=== PATIENT | female | born 1950 | race Caucasian/White ===

== ENCOUNTER 2018-05-23 10:15 | Observation (INO) ==
[2018-05-23] MEDS ORDERED: MORPHINE 4 MG/1 ML VIAL IV STA (11:26)
[2018-05-23] MEDS ORDERED: NITROGLYCERIN 2% OINT 1 INCH/GM PACK TOP STA (11:26)
[2018-05-23] MEDS ORDERED: ASPIRIN 325 MG TABLET PO STA (11:26)
[2018-05-23] MEDS ORDERED: ALUM/MAG/SIMETH/LIDO VISC 1:1 30 ML BOTTLE PO STA (11:26)
[2018-05-23] MEDS ORDERED: ONDANSETRON 4 MG/2 ML VIAL IV STA (11:26)
[2018-05-23 11:36] LABS: Basophils % 0.2 % (0.0-0.8); Eosinophils # 0.2 10*3/uL (0.0-0.87); Eosinophils % 3.9 % (0.00-10.9); Hematocrit 42.7 VOL% (35.7-47.0); Hemoglobin 14.2 GM/DL (12.0-16.0); Immature Granulocytes % 0.2 %; Immature Granulocytes Absolute 0.01 #; Lymphocytes # 1.2 10*3/uL (1.4-4.0); Lymphocytes % 21.9 % (21.3-54.2); Mean Corpuscular HGB Conc 33.3 GM/DL (32-36); Mean Corpuscular Hemoglobin 28 PG (27-34); Mean Corpuscular Volume 85.2 FL (87-102); Mean Platelet Volume 10.7 FL (9.6-12.0); Monocytes # 0.5 10*3/uL (0.11-0.8); Monocytes % 8.2 % (1.7-12.7); Neutrophils # 3.7 10*3/uL (1.4-7.4); Neutrophils % 65.6 % (38.7-73.9); Platelet Count 200 T/CUMM (130-400); Red Blood Count 5.01 MC/CUMM (3.8-5.5); Red Cell Distribution Width 14.4 % (9.3-17.3); White Blood Count 5.6 T/CUMM (4-12)
[2018-05-23 11:43] LABS: INR 0.9; PT Patient Result 9.9 SECS
[2018-05-23 11:49] LABS: Alanine Aminotransferase 12 U/L (13-56); Albumin 3.5 G/DL (3.4-5.0); Alkaline Phosphatase 94 U/L (45-117); Aspartate Amino Transferase 20 U/L (0-37); Bilirubin,Total < 0.39 MG/DL (0.2-1.0); Blood Urea Nitrogen 23 MG/DL (7-18); Calcium 9.1 MG/DL (8.5-10.1); Glucose 118 MG/DL (74-106); Osmolality,Calculated 281.5 MOS/KG (273-304); Potassium 4.2 MMOL/L (3.5-5.1); Sodium 139 MMOL/L (136-145); Total Protein 7.5 G/DL (6.4-8.3)
[2018-05-23] MEDS ORDERED: ENOXAPARIN 100 MG/ML SYRINGE SUBCUT STA (11:55)
[2018-05-23 12:01] LABS: Platelet Estimate Normal
[2018-05-23] MEDS ORDERED: ALUM/MAG/SIMETH/LIDO VISC 1:1 30 ML BOTTLE PO PRN (13:31)
[2018-05-23] MEDS ORDERED: MAGNESIUM SULF RIDER 4 GM in PREMIX 1 EACH IV PRN (13:31)
[2018-05-23] MEDS ORDERED: POTASSIUM CHLORIDE 20 MEQ TABLET PO PRN (13:31)
[2018-05-23] MEDS ORDERED: MAGNESIUM SULF RIDER 2 GM in PREMIX 1 EACH IV PRN (13:31)
[2018-05-23] MEDS ORDERED: ACETAMINOPHEN 325 MG TABLET PO PRN (13:31)
[2018-05-23 13:53] LABS: Risk Ratio 5.37; VLDL CHOLESTEROL 62.8 MG/DL
[2018-05-23] MEDS: NICOTINE 21 MG/24 HR PATCH TRANSDERM SCH (17:41)
[2018-05-23] MEDS ORDERED: KETOROLAC 30 MG/1 ML VIAL IV ONE (20:46)
[2018-05-23] MEDS ORDERED: VALSARTAN 80 MG TABLET PO SCH (21:00)
[2018-05-23] MEDS: CARVEDILOL 3.125 MG TABLET PO SCH (21:26)
[2018-05-23 22:26] LABS: Apearance,Urine Slightly Hazy (Clear); Bilirubin,Urine Negative (Negative); Blood, Urine Negative (Negative); Glucose,Urine (UA) Negative (Negative); Hyaline Casts,Urine 3 /LPF (0-3); Ketones,Urine 5 mg/dL (Negative); Mucus,Urine Occasional /LPF (Occasional); Nitrite,Urine Negative (Negative); Protein,Urine Negative; RBC,Urine <1 /HPF (0-4); Squamous Epithelial Cell,Urine Occasional /HPF (0-10); Urine Color Yellow (Yellow); Urine Specific Gravity 1.027 (1.001-1.035); Urine Urobilinogen < 2.0 EU/DL (0.2-1.0); WBC,Urine 2 /HPF (0-6)
[2018-05-23] MEDS: MORPHINE 4 MG/1 ML VIAL IV PRN (22:34)
[2018-05-23] MEDS: ENOXAPARIN 80 MG/0.8 ML SYRINGE SUBCUT SCH (22:48)
[2018-05-24] MEDS: NITROGLYCERIN 2% OINT 1 INCH/GM PACK TOP SCH ×4 (00:30→18:18)
[2018-05-24] MEDS ORDERED: cloNIDine 0.1 MG TABLET PO PRN (02:43)
[2018-05-24 03:12] LABS: Barbiturates Screen,Urine Negative (Negative); Benzodiazepines Screen,Urine Negative (Negative); Cannabinoid Screen,Urine Positive (Negative); Opiate Screen,Urine Positive (Negative); Phencyclidine Screen,Urine Negative (Negative)
[2018-05-24 03:42] LABS: Basophils % 0.2 % (0.0-0.8); Eosinophils # 0.4 10*3/uL (0.0-0.87); Eosinophils % 6.4 % (0.00-10.9); Hematocrit 38.9 VOL% (35.7-47.0); Hemoglobin 12.6 GM/DL (12.0-16.0); Immature Granulocytes % 0.2 %; Immature Granulocytes Absolute 0.01 #; Lymphocytes # 2.6 10*3/uL (1.4-4.0); Lymphocytes % 41.6 % (21.3-54.2); Mean Corpuscular HGB Conc 32.4 GM/DL (32-36); Mean Corpuscular Hemoglobin 28 PG (27-34); Mean Corpuscular Volume 86.6 FL (87-102); Mean Platelet Volume 9.9 FL (9.6-12.0); Monocytes # 0.7 10*3/uL (0.11-0.8); Monocytes % 10.5 % (1.7-12.7); Neutrophils # 2.6 10*3/uL (1.4-7.4); Neutrophils % 41.1 % (38.7-73.9); Platelet Count 227 T/CUMM (130-400); Red Blood Count 4.49 MC/CUMM (3.8-5.5); Red Cell Distribution Width 14.2 % (9.3-17.3); White Blood Count 6.3 T/CUMM (4-12)
[2018-05-24] MEDS: MORPHINE 4 MG/1 ML VIAL IV PRN ×3 (03:43→18:17)
[2018-05-24] MEDS: ONDANSETRON 4 MG/2 ML VIAL IV PRN ×2 (03:52→19:09)
[2018-05-24 04:04] LABS: Bilirubin,Total 0.4 MG/DL (0.2-1.0); Calcium 8.3 MG/DL (8.5-10.1); Osmolality,Calculated 287.4 MOS/KG (273-304); Potassium 4.3 MMOL/L (3.5-5.1); Total Protein 6.8 G/DL (6.4-8.3)
[2018-05-24 04:07] LABS: Troponin I 0.113 NG/ML (0.00-0.045)
[2018-05-24] MEDS: LISINOPRIL 2.5 MG TABLET PO SCH (10:52)
[2018-05-24] MEDS: ASPIRIN EC 81 MG TABLET PO SCH (10:53)
[2018-05-24] MEDS: CARVEDILOL 3.125 MG TABLET PO SCH ×3 (10:53→21:25)
[2018-05-24] MEDS: PANTOPRAZOLE 40 MG TABLET PO SCH (10:53)
[2018-05-24] MEDS: NICOTINE 21 MG/24 HR PATCH TRANSDERM SCH (10:53)
[2018-05-24] MEDS ORDERED: REGADENOSON 0.4 MG/5 ML SYRINGE IV ONE (10:54)
[2018-05-24] MEDS: ENOXAPARIN 80 MG/0.8 ML SYRINGE SUBCUT SCH ×2 (10:54→21:22)
[2018-05-24] MEDS: ATORVASTATIN 40 MG TABLET PO SCH (12:58)
[2018-05-24] MEDS: OMEGA 3 ACID ETHYL ESTERS 1 GM CAPSULE PO SCH ×2 (12:58→21:22)
[2018-05-24] MEDS: SERTRALINE 50 MG TABLET PO SCH (12:58)
[2018-05-24] MEDS ORDERED: POTASSIUM CHLORIDE RIDER 10 MEQ in PREMIX 1 EACH IV PRN (15:54)
[2018-05-25] MEDS: NITROGLYCERIN 2% OINT 1 INCH/GM PACK TOP SCH ×4 (00:37→18:09)
[2018-05-25] MEDS: CARVEDILOL 3.125 MG TABLET PO SCH ×4 (00:38→20:53)
[2018-05-25 05:33] LABS: Basophils % 0.4 % (0.0-0.8); Eosinophils # 0.4 10*3/uL (0.0-0.87); Eosinophils % 8.3 % (0.00-10.9); Hematocrit 40.6 VOL% (35.7-47.0); Hemoglobin 12.9 GM/DL (12.0-16.0); Immature Granulocytes % 0.2 %; Immature Granulocytes Absolute 0.01 #; Lymphocytes # 1.9 10*3/uL (1.4-4.0); Lymphocytes % 40.6 % (21.3-54.2); Mean Corpuscular HGB Conc 31.8 GM/DL (32-36); Mean Corpuscular Hemoglobin 28 PG (27-34); Mean Corpuscular Volume 86.8 FL (87-102); Mean Platelet Volume 10.9 FL (9.6-12.0); Monocytes # 0.5 10*3/uL (0.11-0.8); Neutrophils # 1.9 10*3/uL (1.4-7.4); Neutrophils % 40.5 % (38.7-73.9); Platelet Count 220 T/CUMM (130-400); Red Blood Count 4.68 MC/CUMM (3.8-5.5); Red Cell Distribution Width 14.4 % (9.3-17.3); White Blood Count 4.7 T/CUMM (4-12)
[2018-05-25 05:59] LABS: Calcium 8.1 MG/DL (8.5-10.1); Osmolality,Calculated 278.7 MOS/KG (273-304); Potassium 4.2 MMOL/L (3.5-5.1)
[2018-05-25 06:18] LABS: Alanine Aminotransferase 12 U/L (13-56); Albumin 3.1 G/DL (3.4-5.0); Alkaline Phosphatase 89 U/L (45-117); Aspartate Amino Transferase 26 U/L (0-37); Bilirubin,Total < 0.39 MG/DL (0.2-1.0); Blood Urea Nitrogen 26 MG/DL (7-18); Calcium 8.1 MG/DL (8.5-10.1); Glucose 86 MG/DL (74-106); Osmolality,Calculated 278.7 MOS/KG (273-304); Potassium 4.3 MMOL/L (3.5-5.1); Sodium 138 MMOL/L (136-145); Total Protein 6.7 G/DL (6.4-8.3)
[2018-05-25] MEDS: SODIUM CHLORIDE 0.9% 1,000 ML IV SCH ×3 (06:50→20:56)
[2018-05-25] MEDS ORDERED: DIAZEPAM 5 MG TABLET PO ONE (07:00)
[2018-05-25] MEDS ORDERED: diphenhydrAMINE CAP 25 MG CAPSULE PO ONE (07:00)
[2018-05-25] MEDS: ASPIRIN EC 81 MG TABLET PO SCH ×2 (07:15→11:03)
[2018-05-25] MEDS: SERTRALINE 50 MG TABLET PO SCH (07:35)
[2018-05-25] MEDS: OMEGA 3 ACID ETHYL ESTERS 1 GM CAPSULE PO SCH ×2 (07:35→20:53)
[2018-05-25] MEDS: ATORVASTATIN 40 MG TABLET PO SCH (07:35)
[2018-05-25] MEDS: LISINOPRIL 2.5 MG TABLET PO SCH (07:35)
[2018-05-25] MEDS: PANTOPRAZOLE 40 MG TABLET PO SCH (07:35)
[2018-05-25] MEDS ORDERED: MIDAZOLAM 2 MG/2 ML VIAL ONE ×2 (07:55→08:45)
[2018-05-25] MEDS ORDERED: fentaNYL 100 MCG/2 ML VIAL ONE (07:55)
[2018-05-25] MEDS ORDERED: LIDOCAINE 1% 20 ML VIAL ONE (07:55)
[2018-05-25] MEDS ORDERED: NITROGLYCERIN DRIP 50 MG/250 ML BOTTLE IV ONE (08:05)
[2018-05-25] MEDS ORDERED: VERAPAMIL 5 MG/2 ML VIAL ONE (08:05)
[2018-05-25] MEDS ORDERED: ENOXAPARIN 30 MG/0.3 ML SYRINGE ONE (08:11)
[2018-05-25] MEDS ORDERED: HYDROmorphone 2 MG/1 ML VIAL ONE (08:31)
[2018-05-25] MEDS ORDERED: TIROFIBAN 5,000 MCG/100 ML PREMIX IV ONE (08:38)
[2018-05-25] MEDS ORDERED: SERTRALINE 50 MG TABLET PO SCH (09:00)
[2018-05-25] MEDS ORDERED: hydrALAZINE 20 MG/1 ML VIAL ONE ×2 (09:00→09:20)
[2018-05-25] MEDS ORDERED: PROMETHAZINE 25 MG/1 ML VIAL ONE ×2 (09:06→11:54)
[2018-05-25] MEDS ORDERED: ONDANSETRON 4 MG/2 ML VIAL ONE (09:47)
[2018-05-25] MEDS ORDERED: ZALEPLON 5 MG CAPSULE PO PRN (09:48)
[2018-05-25] MEDS ORDERED: HYDROmorphone 2 MG/1 ML VIAL IV PRN (09:48)
[2018-05-25] MEDS ORDERED: TICAGRELOR 90 MG TABLET ONE (09:51)
[2018-05-25] MEDS ORDERED: hydrALAZINE 20 MG/1 ML VIAL IV PRN (09:51)
[2018-05-25] MEDS ORDERED: TIROFIBAN 5,000 MCG/100 ML PREMIX IV SCH (10:00)
[2018-05-25] MEDS: NICOTINE 21 MG/24 HR PATCH TRANSDERM SCH (11:06)
[2018-05-25] MEDS: ENOXAPARIN 80 MG/0.8 ML SYRINGE SUBCUT SCH ×2 (11:09→20:59)
[2018-05-25 11:21] LABS: Apearance,Urine CLEAR (Clear); Bilirubin,Urine Negative (Negative); Blood, Urine Negative (Negative); Glucose,Urine (UA) Negative (Negative); Ketones,Urine Negative (Negative); Mucus,Urine Occasional /LPF (Occasional); Nitrite,Urine Negative (Negative); Protein,Urine Negative; RBC,Urine 1 /HPF (0-4); Urine Color Straw (Yellow); Urine Specific Gravity 1.043 (1.001-1.035); Urine Urobilinogen < 2.0 EU/DL (0.2-1.0)
[2018-05-25] MEDS: ONDANSETRON 4 MG/2 ML VIAL IV PRN (11:54)
[2018-05-25] MEDS ORDERED: PROMETHAZINE INJ 12.5 MG in SODIUM CHLORIDE 0.9% 50 ML IV ONE (13:00)
[2018-05-25] MEDS: TICAGRELOR 90 MG TABLET PO SCH (20:53)
[2018-05-26] MEDS: NITROGLYCERIN 2% OINT 1 INCH/GM PACK TOP SCH ×2 (00:28→06:37)
[2018-05-26 05:32] LABS: Basophils % 0.1 % (0.0-0.8); Eosinophils # 0.1 10*3/uL (0.0-0.87); Eosinophils % 1.8 % (0.00-10.9); Hematocrit 36.2 VOL% (35.7-47.0); Hemoglobin 11.9 GM/DL (12.0-16.0); Immature Granulocytes % 0.1 %; Immature Granulocytes Absolute 0.01 #; Lymphocytes # 1.5 10*3/uL (1.4-4.0); Lymphocytes % 21.9 % (21.3-54.2); Mean Corpuscular HGB Conc 32.9 GM/DL (32-36); Mean Corpuscular Hemoglobin 28 PG (27-34); Mean Corpuscular Volume 85.2 FL (87-102); Mean Platelet Volume 10.3 FL (9.6-12.0); Monocytes # 0.7 10*3/uL (0.11-0.8); Monocytes % 10.5 % (1.7-12.7); Neutrophils # 4.4 10*3/uL (1.4-7.4); Neutrophils % 65.6 % (38.7-73.9); Platelet Count 227 T/CUMM (130-400); Red Blood Count 4.25 MC/CUMM (3.8-5.5); Red Cell Distribution Width 14.7 % (9.3-17.3); White Blood Count 6.7 T/CUMM (4-12)
[2018-05-26 06:01] LABS: Calcium 8.1 MG/DL (8.5-10.1); Osmolality,Calculated 278.5 MOS/KG (273-304); Potassium 3.3 MMOL/L (3.5-5.1)
[2018-05-26 06:04] LABS: Bilirubin,Total 1.1 MG/DL (0.2-1.0); Osmolality,Calculated 282.3 MOS/KG (273-304); Potassium 3.3 MMOL/L (3.5-5.1); Total Protein 6.7 G/DL (6.4-8.3)
[2018-05-26] MEDS: POTASSIUM CHLORIDE 20 MEQ TABLET PO PRN ×3 (06:38→18:54)
[2018-05-26 06:41] LABS: CKMB % 7.2 %
[2018-05-26] MEDS ORDERED: POTASSIUM CHLORIDE 20 MEQ/15 ML UDCUP PO ONE (07:29)
[2018-05-26] MEDS: SODIUM CHLORIDE 0.9% 1,000 ML IV SCH (07:47)
[2018-05-26] MEDS: ATORVASTATIN 40 MG TABLET PO SCH (08:00)
[2018-05-26] MEDS: LISINOPRIL 2.5 MG TABLET PO SCH (08:00)
[2018-05-26] MEDS: ASPIRIN EC 81 MG TABLET PO SCH (08:00)
[2018-05-26] MEDS: PANTOPRAZOLE 40 MG TABLET PO SCH (08:00)
[2018-05-26] MEDS: TICAGRELOR 90 MG TABLET PO SCH ×2 (08:00→22:52)
[2018-05-26] MEDS: NICOTINE 21 MG/24 HR PATCH TRANSDERM SCH (08:00)
[2018-05-26] MEDS: CARVEDILOL 3.125 MG TABLET PO SCH ×2 (08:00→22:52)
[2018-05-26] MEDS: OMEGA 3 ACID ETHYL ESTERS 1 GM CAPSULE PO SCH ×2 (08:00→22:52)
[2018-05-26] MEDS: SERTRALINE 50 MG TABLET PO SCH (08:00)
[2018-05-26] MEDS: ALPRAZolam 0.25 MG TABLET PO SCH ×2 (08:01→22:54)
[2018-05-26] MEDS: ENOXAPARIN 80 MG/0.8 ML SYRINGE SUBCUT SCH ×2 (12:09→17:50)
[2018-05-27 04:47] LABS: Basophils % 0.2 % (0.0-0.8); Eosinophils # 0.4 10*3/uL (0.0-0.87); Eosinophils % 4.4 % (0.00-10.9); Hematocrit 34.9 VOL% (35.7-47.0); Hemoglobin 11.3 GM/DL (12.0-16.0); Immature Granulocytes % 0.5 %; Immature Granulocytes Absolute 0.04 #; Lymphocytes # 1.3 10*3/uL (1.4-4.0); Lymphocytes % 16.6 % (21.3-54.2); Mean Corpuscular HGB Conc 32.4 GM/DL (32-36); Mean Corpuscular Hemoglobin 28 PG (27-34); Mean Corpuscular Volume 85.3 FL (87-102); Mean Platelet Volume 10.3 FL (9.6-12.0); Monocytes # 0.8 10*3/uL (0.11-0.8); Monocytes % 10.1 % (1.7-12.7); Neutrophils # 5.5 10*3/uL (1.4-7.4); Neutrophils % 68.2 % (38.7-73.9); Platelet Count 202 T/CUMM (130-400); Red Blood Count 4.09 MC/CUMM (3.8-5.5); Red Cell Distribution Width 14.6 % (9.3-17.3)
[2018-05-27] MEDS: POTASSIUM CHLORIDE 20 MEQ TABLET PO PRN ×2 (05:08→09:28)
[2018-05-27 07:59] VITALS: BP 162/92
[2018-05-27] MEDS: LISINOPRIL 2.5 MG TABLET PO SCH (09:27)
[2018-05-27] MEDS: OMEGA 3 ACID ETHYL ESTERS 1 GM CAPSULE PO SCH (09:28)
[2018-05-27] MEDS: TICAGRELOR 90 MG TABLET PO SCH (09:28)
[2018-05-27] MEDS: ATORVASTATIN 40 MG TABLET PO SCH (09:28)
[2018-05-27] MEDS: PANTOPRAZOLE 40 MG TABLET PO SCH (09:29)
[2018-05-27] MEDS: SERTRALINE 50 MG TABLET PO SCH (09:29)
[2018-05-27] MEDS: CARVEDILOL 3.125 MG TABLET PO SCH (09:29)
[2018-05-27] MEDS: ASPIRIN EC 81 MG TABLET PO SCH (09:29)
[2018-05-27] MEDS: ALPRAZolam 0.25 MG TABLET PO SCH (09:33)
[2018-05-27] MEDS ORDERED: busPIRone 15 MG TABLET PO ONE (09:57)
[2018-05-27] MEDS: NICOTINE 21 MG/24 HR PATCH TRANSDERM SCH (10:33)
[2018-05-27] MEDS ORDERED: busPIRone 5 MG TABLET PO ONE (11:00)
== END 2018-05-27 12:45 | disposition home or self-care (01) ==
LOC: N.EDINP 10:15 → N.ED 10:15 → N.CC 18:38 → N.TELES 05-24 15:50 → N.ICU 05-25 11:27 → N.TELES 05-26 11:29
PROVIDERS: ADMIT Internal Medicine; ATTEND Internal Medicine
PROC: CLCCHCL (ICD-10-PCS; 2018-05-25 08:15)